=== PATIENT | male | born 1965 | race Caucasian/White ===

== ENCOUNTER → 2021-09-06 | Outpatient (CLI) | payer OTHER | END | disposition home or self-care (01) | LOC: LABWHC1 11:46 | PROVIDERS: ATTEND Internal Medicine | DX: Z11.59 Encounter for screening for other viral diseases (principal); Z20.822 Contact with and (suspected) exposure to COVID-19 | CPT/HCPCS: U0003; C9803 ==

== ENCOUNTER 2021-09-11 17:52 | Inpatient (IN) | payer OTHER ==
[2021-09-11] MEDS ORDERED: MORPHINE SULFATE 4 MG/ML SYRINGE IV STA (20:47)
[2021-09-11] MEDS ORDERED: ONDANSETRON 4 MG/2 ML VIAL IVP STA (20:47)
[2021-09-11] MEDS ORDERED: PANTOPRAZOLE 40 MG/10 ML VIAL IVP STA (20:47)
[2021-09-11] MEDS ORDERED: SODIUM CHLORIDE 0.9% 1,000 ML IV STA ×2 (20:47→23:58)
--- NOTE | 2021-09-11 20:51 | ED ---
Abdominal Pain HPI - General Chief Complaint: Abdominal Pain Stated Complaint: covid+,Abd pain-sent by Time Seen by Provider: 09/11/21 20:42 Source: patient Mode of arrival: ambulatory Limitations: no limitations - History of Present Illness Initial Comments: This 55-year-old male presents with a complaint of abdominal pain which is bilateral mid to upper region starting yesterday. He has had some nausea but no vomiting. He has had diarrhea but no constipation. He denies any fever at home but has a temperature of 100.1 here. He denies any urinary symptomatology. He does relate having covid-like symptoms for the past 7 days. He was diagnosed with Covid 3 days ago. He has had a cough but no shortness of breath. He denies any loss of taste or smell. He complains of significant fatigue. He states that he has not had much to eat for the last 3 days due to decreased appetite. He denies any other complaints or modifying factors. He states that he did have somewhat similar symptoms once in the past when he had his gallbladder out. - Related Data Home Medications Medication Instructions Recorded Confirmed Albuterol Inhaler [Ventolin Hfa 2 puff INHALATION RT-QID PRN 09/11/21 09/11/21 Inhaler] Cetirizine HCl [Zyrtec] 10 mg PO DAILY 09/11/21 09/11/21 Lisinopril [Prinivil] 10 mg PO DAILY 09/11/21 09/11/21 Zafirlukast [Accolate] 20 mg PO BID 09/11/21 09/11/21 guaiFENesin [Mucinex] 600 mg PO BID PRN 09/11/21 09/11/21 Allergies Allergy/AdvReac Type Severity Reaction Status Date / Time budesonide [From Symbicort] Allergy Rash/Hives, Verified 09/11/21 23:14 FEELS LIKE SKIN IS BURNING formoterol [From Symbicort] Allergy Rash/Hives, Verified 09/11/21 23:14 FEELS LIKE SKIN IS BURNING Review of Systems ROS Statement: Those systems with pertinent positive or pertinent negative responses have been documented in the HPI. ROS Other: All systems not noted in ROS Statement are negative. Past Medical History Past Medical History: Asthma, Diabetes Mellitus, Hypertension History of Any Multi-Drug Resistant Organisms: None Reported Past Surgical History: Cholecystectomy Past Psychological History: No Psychological Hx Reported Smoking Status: Never smoker Past Alcohol Use History: None Reported Past Drug Use History: None Reported General Exam - General Exam Comments Initial Comments: GENERAL: The patient is well nourished and well hydrated. VITAL SIGNS: Heart rate, blood pressure, respiratory rate reviewed as recorded in nurse's notes. EYES: Pupils are round and reactive. Extraocular movements are intact. No conjunctival / lid redness or swelling. ENT: No external evidence of injury, swelling, or ecchymosis. Airway is patent. Throat is clear. NECK: Nontender. No swelling or evidence of injury. No subcutaneous emphysema. Trachea is midline. No thyroid mass. HEART: Regular rate and rhythm. Good peripheral pulses. LUNGS/CHEST: Breath sounds clear and equal bilaterally. No rales, rhonchi, or wheezes. No ecchymosis, subcutaneous emphysema, or tenderness. ABDOMEN: Abdomen soft with mild tenderness present to the mid to upper bilateral abdomen. No palpable masses or organomegaly. No peritoneal signs. No abdominal wall swelling or ecchymosis. EXTREMITIES: No extremity tenderness. Normal muscle tone and function. No thoracolumbar tenderness. NEUROLOGIC: Sensation is grossly intact. Cranial nerve exam reveals face is symmetrical, tongue is midline, speech is clear. SKIN: No abrasions or ecchymosis is noted. No induration or masses noted. PSYCHIATRIC: Alert and oriented. Appropriate behavior and judgment. Limitations: no limitations Course Vital Signs 09/11/21 09/11/21 19:52 23:25 Temperature 100.1 F H 99.9 F H Pulse Rate 115 H 96 Respiratory 18 16 Rate Blood Pressure 145/85 133/81 O2 Sat by Pulse 92 L 91 L Oximetry Medical Decision Making - Medical Decision Making The patient was seen and examined. All diagnostics are reviewed. He does receive an IV with fluid hydration. He also receives morphine and Zofran intravenously. The chest x-ray does show bilateral pneumonia consistent with atypical viral pneumonia. The computed tomography scan of abdomen and pelvis shows evidence of an ileus but no other acute processes identified. The laboratory shows mild hypokalemia as well as elevated hemoglobin. There is no old hemoglobin for comparison. He also was given a GI cocktail. His initial pulse ox is between 91 and 92%. His EKG shows a sinus tachycardia at a rate of 10 101. There is no acute ST-T wave changes noted. The AR intervals 140, QRS duration is 92, and the QTc interval is 438. The patient is voicing some relief of his abdominal pain with the GI cocktail. It is felt as though he benefit from admission to the hospital for further treatment. He is requesting admissi on. Return parameters are discussed. Case will be discussed with internal medicine shortly. - Lab Data Result diagrams: 09/11/21 21:09/11/21 21: Lab Results 09/11/21 09/11/21 09/11/21 Range/Units : 21: 21: WBC 9.7 (3.8-10.6) k/uL RBC 6.08 H (4.30-5.90) m/uL Hgb 19.4 H* (13.0-17.5) gm/dL Hct 55.6 H (39.0-53.0) % MCV 91.5 (80.0-100.0) fL MCH 32.0 (25.0-35.0) pg MCHC 34.9 (31.0-37.0) g/dL RDW 13.2 (11.5-15.5) % Plt Count 195 (150-450) k/uL MPV 8.5 Neutrophils % 87 % Lymphocytes % 5 % Monocytes % 7 % Eosinophils % 0 % Basophils % 0 % Neutrophils # 8.4 H (1.3-7.7) k/uL Lymphocytes # 0.5 L (1.0-4.8) k/uL Monocytes # 0.6 (0-1.0) k/uL Eosinophils # 0.0 (0-0.7) k/uL Basophils # 0.0 (0-0.2) k/uL PT 11.2 (9.0-12.0) sec INR 1.1 (<1.2) APTT 25.1 (22.0-30.0) sec Sodium 136 L (137-145) mmol/L Potassium 3.4 L (3.5-5.1) mmol/L Chloride 97 L (98-107) mmol/L Carbon Dioxide 25 (22-30) mmol/L Anion Gap 14 mmol/L BUN 20 (9-20) mg/dL Creatinine 1.12 (0.66-1.25) mg/dL Est GFR (CKD-EPI)AfAm 84 (>60 ml/min/1.73 sqM) Est GFR (CKD-EPI)NonAf 73 (>60 ml/min/1.73 sqM) Glucose 121 H (74-99) mg/dL Calcium 8.4 (8.4-10.2) mg/dL Total Bilirubin 0.7 (0.2-1.3) mg/dL AST 48 (17-59) U/L ALT 33 (4-49) U/L Alkaline Phosphatase 76 (38-126) U/L Total Protein 7.3 (6.3-8.2) g/dL Albumin 3.8 (3.5-5.0) g/dL Lipase 174 (23-300) U/L Disposition Clinical Impression: COVID-19, Acute abdominal pain, Tachycardia, Hypoxia, Elevated hemoglobin, Hypokalemia, Hypochloremia, Decreased appetite, Weakness, Pneumonia due to COVID-19 virus, Fever Disposition: ADMITTED IP TO THIS [facility] Condition: Fair Is patient prescribed a controlled substance at d/c from ED?: No Referrals: Rhonda Lopez MD [Primary Care Provider] - 1-2 days Time of Disposition: 23:52 Decision Date: 09/11/21 Decision Time: 23:53
--- NOTE | 2021-09-11 21:09 | XR ---
EXAMINATION TYPE: XR chest 2V DATE OF EXAM: 09/11/2021 9:02 PM COMPARISON:None CLINICAL INDICATION:Male, 55 years old with history of cough; TECHNIQUE: Frontal and lateral views of the chest. FINDINGS: Lungs/Pleura: Subtle Multifocal airspace opacities. No evidence of pneumothorax or pleural effusion. Pulmonary vascularity: Unremarkable. Heart/mediastinum: Cardiomediastinal silhouette is unremarkable. Musculoskeletal: No acute osseous pathology. IMPRESSION: Multifocal pneumonia suggested.
[2021-09-11] MEDS: SODIUM CHLORIDE 0.9% 1,000 ML IV STA (21:20)
[2021-09-11 21:32] LABS: Basophils % (A) 0 %; Eosinophils % (A) 0 %; Lymphocytes # (A) 0.5 k/uL (1.0-4.8); Lymphocytes % (A) 5 %; MCHC 34.9 g/dL (31.0-37.0); MCV 91.5 fL (80.0-100.0); Mean Platelet Volume 8.5; Monocytes # (A) 0.6 k/uL (0-1.0); Monocytes % (A) 7 %; Neutrophils # (A) 8.4 k/uL (1.3-7.7); Neutrophils % (A) 87 %; Platelet Count 195 k/uL (150-450); RBC 6.08 m/uL (4.30-5.90); RDW 13.2 % (11.5-15.5); WBC 9.7 k/uL (3.8-10.6)
[2021-09-11 21:41] LABS: Albumin 3.8 g/dL (3.5-5.0); Calcium 8.4 mg/dL (8.4-10.2); Potassium 3.4 mmol/L (3.5-5.1); Total Bilirubin 0.7 mg/dL (0.2-1.3); Total Protein 7.3 g/dL (6.3-8.2)
[2021-09-11 21:44] LABS: HCT 55.6 % (39.0-53.0)
[2021-09-11 21:45] LABS: HGB 19.4 gm/dL (13.0-17.5)
[2021-09-11 21:56] LABS: INR 1.1 (<1.2); Partial Thromboplastin Time 25.1 sec (22.0-30.0); Prothrombin Time 11.2 sec (9.0-12.0)
[2021-09-11] MEDS ORDERED: MAG HYDROX/AL HYDROX/SIMETH 30 ML, HYOSCYAMINE ELIXIR 10 ML, LIDOCAINE VISCOUS 2% 10 ML PO STA ×3 (22:20)
[2021-09-11] MEDS ORDERED: DEXAMETHASONE SOD PHOSPHATE 10 MG/ML 1 ML VIAL IV STA (22:21)
--- NOTE | 2021-09-11 22:31 | CT ---
EXAMINATION TYPE: CT abdomen pelvis w con DATE OF EXAM: 09/11/2021 COMPARISON: October 31, 2011 HISTORY: abdominal pain CT DLP: 1394.9 mGycm Automated exposure control for dose reduction was used. CONTRAST: Performed with IV Contrast, patient injected with 100 mL of Isovue 300. Images obtained from the diaphragm to the floor the pelvis with IV contrast. There is some patchy linear density at the lung bases consistent with atelectasis. Heart size is norm al. There is no pericardial effusion. There is 3 cm cyst in the anterior liver. There is a 1.5 cm cyst lateral right lobe of the liver. Spl een is intact. There is no pancreatic mass. Stomach is intact. The bile ducts are not dilated. There are clips from cholecystectomy. There is no adrenal mass. Kidneys show satisfactory contrast opacification. There is no hydronephrosi s. There are left side renal parapelvic cysts. Ureters are not dilated. There is no retroperitoneal a denopathy. Bladder distends smoothly. There is no inguinal hernia. There is no free fluid in the pelv is. There is no mesenteric edema. There is no ascites or free air. There is no bowel obstruction. The lum bar vertebra have normal alignment. Posterior elements are intact. There is no compression fracture. Bony pelvis is intact. Hip joints appear normal. There is 2.5 cm fat-containing umbilical hernia. Del ayed images show normal renal excretion. Appendix is not seen. There is no sign of thickened appendix . There are some mildly dilated proximal small bowel loops up to 3.3 cm. No transition point seen. IMPRESSION: There is some mildly dilated proximal small bowel that could relate to ileus. No transition seen. I d o not suspect a mechanical bowel obstruction. Appendix not seen. This appears new compared to old exa m. Patchy atelectasis at the lung bases.
[2021-09-11] MEDS ORDERED: guaiFENesin 600 MG TABLET.ER PO PRN (23:53)
[2021-09-11] MEDS ORDERED: HYDROmorphone 0.5 MG/0.5 ML SYRINGE IVP PRN (23:54)
[2021-09-11] MEDS ORDERED: ONDANSETRON 4 MG/2 ML VIAL IVP PRN (23:54)
[2021-09-11] MEDS ORDERED: MORPHINE SULFATE 4 MG/ML SYRINGE IV PRN (23:54)
[2021-09-11] MEDS ORDERED: NALOXONE 0.4 MG/ML 1 ML VIAL IV PRN (23:54)
[2021-09-11] MEDS ORDERED: ACETAMINOPHEN TAB 325 MG TAB PO PRN (23:54)
[2021-09-11] MEDS ORDERED: POTASSIUM CHLORIDE ER 20 MEQ TAB.ER PO STA (23:58)
[2021-09-12 00:40] LABS: Mucus,Urine Rare /hpf; WBC,Urine 1 /hpf (0-5)
[2021-09-12 00:41] LABS: Appearance,Urine Clear (Clear); Bilirubin,Urine Negative (Negative); Blood,Urine Small (Negative); Color,Urine Yellow; Glucose,Urine (UA) Negative (Negative); Ketones,Urine 2+ (Negative); Leukocyte Esterase,Urine Negative (Negative); Nitrite,Urine Negative (Negative); Protein,Urine 1+ (Negative); RBC,Urine 6 /hpf (0-5); Squamous Epithelial Cell,Urine <1 /hpf (0-4); Urobilinogen,Urine <2.0 mg/dL (<2.0)
[2021-09-12 00:44] LABS: Specific Gravity,Urine >1.050 (1.001-1.035)
[2021-09-12] MEDS: ALBUTEROL HFA INHALER INHALATION SCH ×6 (03:59→21:31)
[2021-09-12 04:20] LABS: Basophils % (A) 0 %; Eosinophils % (A) 0 %; HCT 52.2 % (39.0-53.0); HGB 17.8 gm/dL (13.0-17.5); Lymphocytes # (A) 0.4 k/uL (1.0-4.8); Lymphocytes % (A) 6 %; MCH 31.5 pg (25.0-35.0); MCHC 34.1 g/dL (31.0-37.0); MCV 92.1 fL (80.0-100.0); Mean Platelet Volume 9.4; Monocytes # (A) 0.3 k/uL (0-1.0); Monocytes % (A) 4 %; Neutrophils # (A) 6.4 k/uL (1.3-7.7); Neutrophils % (A) 89 %; Platelet Count 184 k/uL (150-450); RBC 5.67 m/uL (4.30-5.90); RDW 13.4 % (11.5-15.5); WBC 7.2 k/uL (3.8-10.6)
[2021-09-12 05:05] LABS: African American GFR (CKD) >90 (>60 ml/min/1.73 sqM); Anion Gap 9 mmol/L; Blood Urea Nitrogen 17 mg/dL (9-20); Calcium 7.6 mg/dL (8.4-10.2); Carbon Dioxide 24 mmol/L (22-30); Chloride 103 mmol/L (98-107); Glucose 128 mg/dL (74-99); Non-African American GFR(CKD) >90 (>60 ml/min/1.73 sqM); Potassium 4.1 mmol/L (3.5-5.1); Sodium 136 mmol/L (137-145)
[2021-09-12] MEDS ORDERED: DEXAMETHASONE SOD PHOSPHATE 10 MG/ML 1 ML VIAL IV SCH (09:00)
[2021-09-12] MEDS: ENOXAPARIN 40 MG/0.4 ML SYRINGE SQ SCH (10:45)
[2021-09-12] MEDS: lisinopriL 10 MG TAB PO SCH (10:46)
[2021-09-12] MEDS: PANTOPRAZOLE 40 MG/10 ML VIAL IV SCH (10:46)
[2021-09-12] MEDS: LORATADINE 10 MG TAB PO SCH (10:46)
--- NOTE | 2021-09-12 11:41 | P.CONS ---
History of Present Illness - Reason for Consult Consult date: 09/12/21 erythrocytosis Requesting physician: Payam Maddox - Chief Complaint abd pain, D, covid - History of Present Illness Mr. Coker is a very pleasant 55-year-old male we have been asked to see in regards to erythrocytosis. He is currently admitted with Covid pneumonia. Patient states that for about 10 days he's been experiencing diarrhea, this progressed to abdominal pain over the last several days which is what led him to seek medical attention. Patient denies any history of blood disorders, he has never been told he has had a high hemoglobin before, patient does note snoring, has never had a sleep study, he is exposed to secondhand smoke. His CT of the abdomen and pelvis was negative for any acute process, no bowel obstruction. He has been hydrated with a slight decrease in his hemoglobin. Review of Systems 10 point review of systems is negative except as stated in HPI Past Medical History Past Medical History: Asthma, Diabetes Mellitus, Hypertension History of Any Multi-Drug Resistant Organisms: None Reported Past Surgical History: Cholecystectomy Past Psychological History: No Psychological Hx Reported Smoking Status: Never smoker Past Alcohol Use History: None Reported Past Drug Use History: None Reported Medications and Allergies Home Medications Medication Instructions Recorded Confirmed Type Albuterol Inhaler [Ventolin Hfa 2 puff INHALATION RT-QID PRN 09/11/21 09/11/21 History Inhaler] Cetirizine HCl [Zyrtec] 10 mg PO DAILY 09/11/21 09/11/21 History Lisinopril [Prinivil] 10 mg PO DAILY 09/11/21 09/11/21 History Zafirlukast [Accolate] 20 mg PO BID 09/11/21 09/11/21 History guaiFENesin [Mucinex] 600 mg PO BID PRN 09/11/21 09/11/21 History Allergies Allergy/AdvReac Type Severity Reaction Status Date / Time budesonide [From Symbicort] Allergy Rash/Hives, Verified 09/11/21 23:14 FEELS LIKE SKIN IS BURNING formoterol [From Symbicort] Allergy Rash/Hives, Verified 09/11/21 23:14 FEELS LIKE SKIN IS BURNING Physical Exam Vitals: Vital Signs Temp Pulse Resp BP Pulse Ox 09/12/21 10:51 18 157/77 09/12/21 08:40 98.4 F 87 16 139/78 94 L 09/12/21 06:24 98.6 F 80 18 137/79 95 09/12/21 04:50 97.5 F L 75 18 94 L 09/12/21 04:23 83 16 127/83 91 L 09/12/21 02:23 89 16 133/82 91 L 09/11/21 23:25 99.9 F H 96 16 133/81 91 L 09/11/21 19:52 100.1 F H 115 H 18 145/85 92 L Intake and Output 09/11/21 09/12/21 09/12/21 22:59 06:59 14:59 Other: Weight 104.326 kg - Constitutional General appearance: cooperative, no acute distress, obese - EENT Eyes: anicteric sclerae, EOMI ENT: hearing grossly normal, normal oropharynx - Neck Neck: no lymphadenopathy - Respiratory Respiratory: bilateral: diminished - Cardiovascular Rhythm: regular Heart sounds: normal: S1, S2 Abnormal Heart Sounds: no systolic murmur, no diastolic murmur, no rub, no S3 Gallop, no S4 Gallop, no click, no other leg Peripheral Edema: bilateral: None - Gastrointestinal General gastrointestinal: no absent bowel sounds, no decreased bowel sounds, no distended, no hepatomegaly, no hyperactive bowel sounds, normal bowel sounds, no organomegaly, no rigid, no scaphoid, soft, no splenomegaly, no tenderness, no umbilical hernia, no ventral hernia - Integumentary Integumentary: normal - Neurologic Neurologic: CNII-XII intact - Musculoskeletal Musculoskeletal: strength equal bilaterally - Psychiatric Psychiatric: A&O x's 3, appropriate affect, intact judgment & insight Results CBC & Chem 7: 09/12/21 03:45 09/12/21 03:45 Labs: Abnormal Lab Results - Last 24 Hours (Table) 09/11/21 09/11/21 09/12/21 Range/Units 21:22 21:22 00:20 RBC 6.08 H (4.30-5.90) m/uL Hgb 19.4 H* (13.0-17.5) gm/dL Hct 55.6 H (39.0-53.0) % Neutrophils # 8.4 H (1.3-7.7) k/uL Lymphocytes # 0.5 L (1.0-4.8) k/uL Sodium 136 L (137-145) mmol/L Potassium 3.4 L (3.5-5.1) mmol/L Chloride 97 L (98-107) mmol/L Glucose 121 H (74-99) mg/dL Calcium (8.4-10.2) mg/dL Ur Specific [place] >1.050 H (1.001-1.035) Urine Protein 1+ H (Negative) Urine Ketones 2+ H (Negative) Urine Blood Small H (Negative) Urine RBC 6 H (0-5) /hpf Urine Mucus Rare H (None) /hpf 09/12/21 09/12/21 Range/Units 03:45 03:45 RBC (4.30-5.90) m/uL Hgb 17.8 H (13.0-17.5) gm/dL Hct (39.0-53.0) % Neutrophils # (1.3-7.7) k/uL Lymphocytes # 0.4 L (1.0-4.8) k/uL Sodium 136 L (137-145) mmol/L Potassium (3.5-5.1) mmol/L Chloride (98-107) mmol/L Glucose 128 H (74-99) mg/dL Calcium 7.6 L (8.4-10.2) mg/dL Ur Specific [place] (1.001-1.035) Urine Protein (Negative) Urine Ketones (Negative) Urine Blood (Negative) Urine RBC (0-5) /hpf Urine Mucus (None) /hpf Chest x-ray: report reviewed CT scan - abdomen: report reviewed CT scan - pelvis: report reviewed Assessment and Plan (1) Elevated hemoglobin Narrative/Plan: New onset, no history of elevated hemoglobin. Patient had been experiencing diarrhea for about 10 days prior to admit which may have made him slightly hemoconcentrated on admission. There has been a slight decrease in the hemoglobin since patient started on IV fluids. With reports of snoring and secondhand smoke exposure a secondary polycythemia is possible. We'll order a reticulocyte count and erythropoietin levels. She new to monitor CBC while inpatient. Current Visit: Yes Status: Acute Priority: Medium Code(s): D58.2 - OTHER HEMOGLOBINOPATHIES SNOMED Code(s): 726434244 Plan: Doctor attests: I performed a history and physical examination of this patient, developed impression and plan of care. Discussed with dictator. I agree with dictators note, documented as a scribe.
[2021-09-12 12:21] LABS: Reticulocyte % 0.5 % (0.5-2.0)
[2021-09-12] MEDS: SODIUM CHLORIDE 0.9% 1,000 ML IV STA (12:40)
[2021-09-12 14:44] VITALS: BMI 37.1
--- NOTE | 2021-09-12 17:41 | HP ---
HISTORY AND PHYSICAL CHIEF COMPLAINT: Multiple complaints including abdominal pain as well as cough, fever and Covid 19. HISTORY OF PRESENT ILLNESS: This 55-year-old gentleman with a past medical history of asthma, diabetes, GERD, hypertension, DJD, history of pneumonia, being followed by Dr. Rhonda Lopez in the outpatient setting complaining of symptoms of cough and abdominal discomfort for the last one week. The patient diagnosed with Covid 19 three days ago. Because of increased symptoms, patient came to [facility] and was admitted for further evaluation and treatment. The CT scan of the abdomen showed only dilated proximal small bowel could be ileus. Hemoglobin was also elevated. There is no history of fever, rigors, chills at this time. D-dimer is not available. The pulse ox has been rather well maintained on room air, even though it is in low 90s. The patient was febrile on admission and tachycardic. There is no headache, loss of consciousness, seizures at this time. PAST MEDICAL HISTORY: History of asthma, diabetes type 2, GERD, hypertension, DJD, history of pneumonia, renal disease. MEDICATION: Home medications are reviewed and include Mucinex, Zyrtec, Ventolin, Prinivil, doses reviewed. ALLERGIES: Symbicort. FAMILY HISTORY: History of colon cancer. SOCIAL HISTORY: No history of smoking. No history of alcohol intake. REVIEW OF SYSTEMS: ENT: No diminished vision. No diminished hearing. CARDIOVASCULAR as mentioned earlier. RESPIRATORY: As mentioned earlier. GI: No nausea or vomiting. : No dysuria. NERVOUS SYSTEM: No numbness or weakness. ALLERGY/IMMUNOLOGY: No history of anemia. HEMATOLOGY/ONCOLOGY: No history of anemia. ENDOCRINE: As mentioned earlier. CONSTITUTIONAL: As mentioned earlier. DERMATOLOGY negative. RHEUMATOLOGY: Negative. PSYCHIATRIC: As mentioned earlier. PHYSICAL EXAMINATION: Patient is alert, oriented x3. Pulse is 75, blood pressure is 127/83, respiration 18, temperature 97.5, pulse ox 94% on room air. HEENT: Conjunctivae normal. Oral mucosa moist. NECK is no jugular venous distention. No thyroid enlargement, carotid bruit. CARDIOVASCULAR system: S1, S2 muffled. RESPIRATION: A few scattered rhonchi. ABDOMEN: Soft, obese, nontender. No mass palpable. LEGS: No edema. No swelling. NERVOUS SYSTEM: Higher functions as mentioned earlier. Moves all 4 limbs. No focal motor or sensory deficits. LYMPHATICS: No lymph nodes palpable in the neck, axillae or groin. SKIN: No ulcer. No rash and no bleeding. JOINTS: No active deforming arthropathy. LABS: WBC 7.3, hemoglobin 17.8, sodium 136, calcium is 7.6. ASSESSMENT: 1. Acute Covid 19 infection with acute COVID-19 early bilateral interstitial pneumonia with no hypoxia. 2. Secondary to polycythemia. 3. Abdominal pain and discomfort, possibly small-bowel ileus secondary to Covid 19. 4. Hyponatremia. 5. Hypokalemia. 6. Increased random glucose. 7. Hypocalcemia, mild. 8. History of asthma. 9. Diabetes mellitus, type 2. 10.Gastroesophageal reflux disease. 11.Hypertension. 12.History of degenerative joint disease. 13.History pneumonia. 14.History of renal disease. 15.History of hypoglycemia. 16.History of diverticular disease. 17.History of nephrolithiasis. 18.History of cholecystectomy. 19.History of motion sickness. 20.FULL CODE. 21.Obesity. 22.FULL CODE. RECOMMENDATIONS AND DISCUSSION: This 55-year-old gentleman who presented with multiple complex medical issues, at this time, we will monitor the patient closely, continue the current medications, management and symptomatic treatment. Otherwise, at this time, I would recommend a D-dimer and if it is positive, CT angio of the chest. Continue the usual medications for Covid 19. Infectious disease evaluation. As mentioned earlier pulse ox is mentioned at this time. Continue the Lovenox and prognosis guarded because of multiple complex medical issues. The patient is apparently unvaccinated. Further recommendations to follow. A copy of this dictation is being forwarded to Dr. Lopez who is the primary physician. We will monitor the blood sugar also. MMODL / IJN: [id number] / [facility]ITALMandy
[2021-09-12 18:43] LABS: Glucose,Whole Blood 134 mg/dL (75-99)
[2021-09-12] MEDS: INSULIN ASPART (NovoLOG) 100 UNIT/ML VIAL SQ SCH ×2 (18:47→22:00)
[2021-09-12] MEDS ORDERED: REMDESIVIR 200 MG in SODIUM CHLORIDE 0.9% 250 ML IVPB ONE (21:42)
[2021-09-12 21:44] LABS: Glucose,Whole Blood 133 mg/dL (75-99)
[2021-09-12] MEDS: MONTELUKAST 10 MG TAB PO SCH (22:01)
[2021-09-13 05:34] LABS: Basophils % (A) 0 %; Eosinophils % (A) 0 %; HCT 51.7 % (39.0-53.0); HGB 17.4 gm/dL (13.0-17.5); Lymphocytes # (A) 0.5 k/uL (1.0-4.8); Lymphocytes % (A) 3 %; MCH 31.1 pg (25.0-35.0); MCHC 33.7 g/dL (31.0-37.0); MCV 92.5 fL (80.0-100.0); Mean Platelet Volume 9.6; Monocytes # (A) 0.4 k/uL (0-1.0); Monocytes % (A) 3 %; Neutrophils # (A) 12.2 k/uL (1.3-7.7); Neutrophils % (A) 92 %; Platelet Count 212 k/uL (150-450); RBC 5.59 m/uL (4.30-5.90); RDW 13.4 % (11.5-15.5); WBC 13.2 k/uL (3.8-10.6)
[2021-09-13 05:45] LABS: African American GFR (CKD) >90 (>60 ml/min/1.73 sqM); Anion Gap 7 mmol/L; Blood Urea Nitrogen 18 mg/dL (9-20); Calcium 7.8 mg/dL (8.4-10.2); Carbon Dioxide 24 mmol/L (22-30); Chloride 107 mmol/L (98-107); Glucose 111 mg/dL (74-99); Non-African American GFR(CKD) >90 (>60 ml/min/1.73 sqM); Sodium 138 mmol/L (137-145)
[2021-09-13 06:02] LABS: Potassium 3.9 mmol/L (3.5-5.1)
[2021-09-13 07:27] LABS: Glucose,Whole Blood 102 mg/dL (75-99)
[2021-09-13] MEDS: INSULIN ASPART (NovoLOG) 100 UNIT/ML VIAL SQ SCH ×4 (07:33→22:53)
[2021-09-13] MEDS: LORATADINE 10 MG TAB PO SCH (08:16)
[2021-09-13] MEDS: DEXAMETHASONE SOD PHOSPHATE 10 MG/ML 1 ML VIAL IV SCH (08:16)
[2021-09-13] MEDS: PANTOPRAZOLE 40 MG/10 ML VIAL IV SCH (08:16)
[2021-09-13] MEDS: lisinopriL 10 MG TAB PO SCH (08:16)
[2021-09-13] MEDS: ENOXAPARIN 40 MG/0.4 ML SYRINGE SQ SCH (08:17)
[2021-09-13] MEDS: REMDESIVIR 100 MG in SODIUM CHLORIDE 0.9% 250 ML IVPB SCH (08:30)
--- NOTE | 2021-09-13 09:08 | P.CONS ---
History of Present Illness - Reason for Consult Consult date: 09/12/21 covid 19 pneumonia Requesting physician: Myles Ramesh - Chief Complaint abd pain x 1 day - History of Present Illness History of present illness : Patient is 55-year-old male presenting to the ER last night for evaluation of abdominal pain which has been mid to the upper region started yesterday the patient has some nausea but no vomiting did have diarrhea we also have a low-grade fever the patient did have a initially some URI symptoms and did have a cough which is mild in intensity and dry nature no pleuritic chest pain no shortness of breath symptom has been going on for about a week patient did have decreased appetite and no vomiting was diagnosed with a Covid 3 days before presentation to the hospital on arrival to the ER the patient did have a fever 100.1 F patient did have evidence of hypoxemia with O2 sats of 91% on room air patient did have a normal white count with a lymphopenia hemoglobin was elevated at 19.4 D-dimer was 0.99 kidney function was normal and enzymes are normal urine is negative patient did have a chest x-ray multifocal pneumonia suggested patient also have a CT of abdominal pelvis mildly dilated proximal small bowel could relate to the ileus infectious was consulted because of his Covid pneumonia Review of system: CONSTITUTIONAL: Positive for weakness along with the fever. EYES: No complaint. ENT: No complaint. RESPIRATORY: As per history of present illness CARDIOVASCULAR: No complaint. GENITOURINARY: No complaint. GASTROINTESTINAL: As per history of present illness. MUSCULOSKELETAL: No complaint. INTEGUMENTARY: No complaint. PSYCHOLOGIC: No complaint. ENDOCRINE: No complaint. NEUROLOGIC: No complaint. Past medical history : Reviewed, documented below Past surgical history : Reviewed, documented below Social history: Reviewed, documented below Medications: Reviewed, as documented below EXAMINATION: Vital sigans= Reviewed and documented below GENERAL DESCRIPTION: Middle-aged male lying in bed, no distress. No tachypnea or accessory muscle of respiration use. HEENT: Shows Pallor , no scleral icterus. Oral mucous membrane is dry. NECK: Trachea central, no thyromegaly. LUNGS: Unlabored breathing. Decrease intensity of breath sounds. No wheeze or crackle. HEART: S1, S2, regular rate and rhythm. ABDOMEN: Soft, no tenderness , guarding or rigidity EXTREMITIES: No edema of feet. SKIN: No rash, no masses palpable. NEUROLOGICAL: The patient is awake, alert, oriented x3, mood and affect normal. LABS AND RADIOLOGY: Reviewed results see below Assessment : Patient presented to hospital with abdominal pain CT abdominal pelvis IV suggestive of ileus in this patient also have a low-grade fever did have a hypoxemia with evidence of multifocal pneumonia on the chest x-ray symptom onset has been 7 days patient currently within the therapeutic window for remdesivir per [facility] policy no evidence of any secondary bacterial pneumonia Plan: 1-patient was started on remdesivir 5-day protocol 2-dexamethasone Lovenox zinc and ascorbic acid 3-droplet isolation and respiratory support We will follow on clinical condition and cultures to further adjust medication if needed Thank you for this consultation we will follow the patient along with you Past Medical History Past Medical History: Asthma, Diabetes Mellitus, GERD/Reflux, Hypertension, Os teoarthritis (OA), Pneumonia, Renal Disease Additional Past Medical History / Comment(s): Hypoglycemia, numbness/tingling bilateral hand fingers, diverticular disease, nephrolithiasis/passed stone on his own, arthritis in spine/occasional back pain. History of Any Multi-Drug Resistant Organisms: None Reported Past Surgical History: Cholecystectomy Additional Past Surgical History / Comment(s): Colonoscopy Past Anesthesia/Blood Transfusion Reactions: Motion Sickness Smoking Status: Never smoker - Past Family History Father Family Medical History: Cancer Additional Family Medical History / Comment(s): Colon cancer. Father is living. Mother Family Medical History: Cancer, Thyroid Disorder Additional Family Medical History / Comment(s): Skin cancer, mother is alive. Medications and Allergies Home Medications Medication Instructions Recorded Confirmed Type Albuterol Inhaler [Ventolin Hfa 2 puff INHALATION RT-QID PRN 09/11/21 09/11/21 History Inhaler] Cetirizine HCl [Zyrtec] 10 mg PO DAILY 09/11/21 09/11/21 History Lisinopril [Prinivil] 10 mg PO DAILY 09/11/21 09/11/21 History Zafirlukast [Accolate] 20 mg PO BID 09/11/21 09/11/21 History guaiFENesin [Mucinex] 600 mg PO BID PRN 09/11/21 09/11/21 History Allergies Allergy/AdvReac Type Severity Reaction Status Date / Time budesonide [From Symbicort] Allergy Rash/Hives, Verified 09/11/21 23:14 FEELS LIKE SKIN IS BURNING formoterol [From Symbicort] Allergy Rash/Hives, Verified 09/11/21 23:14 FEELS LIKE SKIN IS BURNING Physical Exam Vitals: Vital Signs Temp Pulse Pulse Resp BP BP Pulse Ox 09/12/21 15:26 80 16 117/56 94 L 09/12/21 14:00 77 16 154/80 94 L 09/12/21 10:51 18 157/77 09/12/21 08:40 98.4 F 87 16 139/78 94 L 09/12/21 06:24 98.6 F 80 18 137/79 95 09/12/21 04:50 97.5 F L 75 18 94 L 09/12/21 04:23 83 16 127/83 91 L 09/12/21 02:23 89 16 133/82 91 L 09/11/21 23:25 99.9 F H 96 16 133/81 91 L Intake and Output 09/12/21 09/12/21 09/12/21 06:59 14:59 22:59 Other: Weight 104.326 kg Results CBC & Chem 7: 09/13/21 04:57 09/13/21 04:57 Labs: Abnormal Lab Results - Last 24 Hours (Table) 09/12/21 09/12/21 09/12/21 Range/Units 00:20 03:45 03:45 Hgb 17.8 H (13.0-17.5) gm/dL Lymphocytes # 0.4 L (1.0-4.8) k/uL D-Dimer (<0.60) mg/L FEU Sodium 136 L (137-145) mmol/L Glucose 128 H (74-99) mg/dL POC Glucose (mg/dL) (75-99) mg/dL Calcium 7.6 L (8.4-10.2) mg/dL Ur Specific Ophiem >1.050 H (1.001-1.035) Urine Protein 1+ H (Negative) Urine Ketones 2+ H (Negative) Urine Blood Small H (Negative) Urine RBC 6 H (0-5) /hpf Urine Mucus Rare H (None) /hpf 09/12/21 09/12/21 09/12/21 Range/Units 17:08 18:40 21:43 Hgb (13.0-17.5) gm/dL Lymphocytes # (1.0-4.8) k/uL D-Dimer 0.99 H (<0.60) mg/L FEU Sodium (137-145) mmol/L Glucose (74-99) mg/dL POC Glucose (mg/dL) 134 H 133 H (75-99) mg/dL Calcium (8.4-10.2) mg/dL Ur Specific Ophiem (1.001-1.035) Urine Protein (Negative) Urine Ketones (Negative) Urine Blood (Negative) Urine RBC (0-5) /hpf Urine Mucus (None) /hpf
[2021-09-13] MEDS: ALBUTEROL HFA INHALER INHALATION SCH ×4 (09:36→23:42)
[2021-09-13 12:48] LABS: Glucose,Whole Blood 118 mg/dL (75-99)
--- NOTE | 2021-09-13 13:08 | P.PN ---
Subjective Progress Note Date: 09/13/21 Principal diagnosis: erythrocytosis In f/u pt is SOB at rest, cough persists. Objective - Vital Signs Vital signs: Vital Signs Temp 99.8 F H 09/13/21 07:15 Pulse 107 H 09/13/21 10:17 Resp 16 09/13/21 10:17 BP 169/93 09/13/21 10:17 Pulse Ox 95 09/13/21 10:17 Intake & Output 09/12/21 09/13/21 09/13/21 18:59 06:59 18:59 Intake Total 250 Balance 250 Weight 104.326 kg Intake: Intake, IV Titration 250 Amount Remdesivir 200 mg In 250 Sodium Chloride 0.9% 250 ml @ 250 mls/hr IVPB ONCE ONE Rx#:[id number] Other: Voiding Method Toilet Toilet # Voids 3 - Constitutional General appearance: Present: cooperative, mild distress, obese - EENT Eyes: Present: anicteric sclerae, EOMI ENT: Present: hearing grossly normal - Musculoskeletal Musculoskeletal: Present: strength equal bilaterally - Psychiatric Psychiatric: Present: A&O x's 3, appropriate affect, intact judgment & insight - Labs CBC & Chem 7: 09/13/21 04:57 09/13/21 04:57 Labs: Abnormal Lab Results - Last 24 Hours (Table) 09/12/21 09/12/21 09/12/21 Range/Units 17:08 17:08 18:40 WBC (3.8-10.6) k/uL Neutrophils # (1.3-7.7) k/uL Lymphocytes # (1.0-4.8) k/uL D-Dimer 0.99 H (<0.60) mg/L FEU Glucose (74-99) mg/dL POC Glucose (mg/dL) 134 H (75-99) mg/dL Calcium (8.4-10.2) mg/dL Ferritin 966.0 H (22.0-322.0) ng/mL 09/12/21 09/13/21 09/13/21 Range/Units 21:43 04:57 04:57 WBC 13.2 H (3.8-10.6) k/uL Neutrophils # 12.2 H (1.3-7.7) k/uL Lymphocytes # 0.5 L (1.0-4.8) k/uL D-Dimer (<0.60) mg/L FEU Glucose 111 H (74-99) mg/dL POC Glucose (mg/dL) 133 H (75-99) mg/dL Calcium 7.8 L (8.4-10.2) mg/dL Ferritin (22.0-322.0) ng/mL 09/13/21 09/13/21 Range/Units 07:26 12:36 WBC (3.8-10.6) k/uL Neutrophils # (1.3-7.7) k/uL Lymphocytes # (1.0-4.8) k/uL D-Dimer (<0.60) mg/L FEU Glucose (74-99) mg/dL POC Glucose (mg/dL) 102 H 118 H (75-99) mg/dL Calcium (8.4-10.2) mg/dL Ferritin (22.0-322.0) ng/mL Assessment and Plan (1) Elevated hemoglobin Narrative/Plan: New onset, no history of elevated hemoglobin. Patient had been experiencing diarrhea for about 10 days prior to admit which may have made him slightly hemoconcentrated on admission. There has been a slight decrease in the hemoglobin since patient started on IV fluids. With reports of snoring and s econdhand smoke exposure a secondary polycythemia is possible. Reticulocyte is low normal, pending erythropoietin level. CBC shows Hgb stable and WNL today Current Visit: Yes Status: Acute Priority: Medium Code(s): D58.2 - OTHER HEMOGLOBINOPATHIES SNOMED Code(s): 038409094
[2021-09-13 17:20] LABS: Glucose,Whole Blood 104 mg/dL (75-99)
--- NOTE | 2021-09-13 18:09 | PN ---
PROGRESS NOTE DATE OF SERVICE: 09/13/2021 This 55-year-old gentleman who was admitted with acute Covid 19 infection with early interstitial pneumonia is being closely monitored at this time. Multiple consultants following the patient closely. The patient is started on Remdesivir. No chest pain. No palpitations. No fever. PHYSICAL EXAMINATION: Alert and oriented times three. Pulse is 87. Blood pressure 130/76, respirations 16, temperature 99.4, pulse ox 94% on room air. HEENT: Conjunctivae normal. NECK: No JVD. CARDIOVASCULAR: S1, S2. RESPIRATION: Breath sounds diminished in the bases. A few scattered rhonchi and crackles. ABDOMEN: Soft. NERVOUS SYSTEM: No focal deficits. LAB STUDIES: WBC 13.2, hemoglobin 17.4. ASSESSMENT: 1. Acute Covid 19 infection with acute Covid 19 early interstitial bilateral interstitial pneumonia with no hypoxia. 2. Secondary polycythemia. 3. On Remdesivir. 4. Abdominal pain and discomfort, possibly small-bowel ileus secondary to Covid 19. 5. Hyponatremia. 6. Hypokalemia. 7. Increased random glucose. 8. Hypocalcemia mild. 9. History of asthma. 10.Diabetes type 2. 11.Gastroesophageal reflux disease. 12.Hypertension. 13.History of degenerative joint disease. 14.History of pneumonia. 15.History of renal disease. 16.History of hypoglycemia. 17.History of diverticular disease. 18.History of nephrolithiasis. 19.History of cholecystectomy. 20.History of motion sickness. 21.FULL CODE. 22.Obesity. RECOMMENDATIONS AND DISCUSSION: Recommend to continue current management and symptomatic treatment. Otherwise, continue the bronchodilators. Continue with Remdesivir. Continue the rest of medications. Closely follow with multiple consultants. Further recommendations to follow. A copy of this dictation being forwarded to Dr. Lopez who is the primary care physician. MMODL / IJN: [id number] /
[2021-09-13] MEDS: MONTELUKAST 10 MG TAB PO SCH (20:31)
[2021-09-13 21:26] LABS: Glucose,Whole Blood 124 mg/dL (75-99)
--- NOTE | 2021-09-13 23:12 | PN ---
PROGRESS NOTE DATE OF SERVICE: 09/13/2021 REASON FOR FOLLOWUP: COVID-19 pneumonia. INTERVAL HISTORY: The patient is afebrile. The patient is breathing slightly comfortably, currently not requiring supplemental oxygen. The patient denies having any chest pain or worsening cough or sputum production. No nausea, vomiting. No abdominal pain or diarrhea. PHYSICAL EXAMINATION: Blood pressure 130/76, pulse of 87, temperature of 99.4. He is 94% on room air. General description is a middle-aged male lying in bed in no distress. Respiratory system: Unlabored breathing. Diminished breath sounds at the base. No wheeze. Heart S1, S2. Regular rate and rhythm. Abdomen soft, no tenderness. Extremities no edema of the feet. LABS: Hemoglobin 17.4, white count 13.2, creatinine 0.8. DIAGNOSTIC IMPRESSION AND PLAN: Patient with acute COVID-19 pneumonia in this patient who seems to be clinically responding to the remdesivir and dexamethasone, Lovenox, zinc and ascorbic acid; to continue along with respiratory support, and monitor his clinical course closely. MMODL / IJN: [id number] /
[2021-09-14 07:31] LABS: Glucose,Whole Blood 89 mg/dL (75-99)
[2021-09-14] MEDS: ALBUTEROL HFA INHALER INHALATION SCH ×4 (07:35→20:20)
[2021-09-14] MEDS: INSULIN ASPART (NovoLOG) 100 UNIT/ML VIAL SQ SCH ×4 (07:53→21:01)
[2021-09-14] MEDS: LORATADINE 10 MG TAB PO SCH (10:06)
[2021-09-14] MEDS: PANTOPRAZOLE 40 MG TABLET PO SCH (10:06)
[2021-09-14] MEDS: lisinopriL 10 MG TAB PO SCH (10:06)
[2021-09-14] MEDS: DEXAMETHASONE SOD PHOSPHATE 10 MG/ML 1 ML VIAL IV SCH (10:07)
[2021-09-14] MEDS: ENOXAPARIN 40 MG/0.4 ML SYRINGE SQ SCH (10:07)
[2021-09-14] MEDS: REMDESIVIR 100 MG in SODIUM CHLORIDE 0.9% 250 ML IVPB SCH (10:07)
--- NOTE | 2021-09-14 12:10 | XR ---
EXAMINATION TYPE: XR chest 1V portable DATE OF EXAM: 09/14/2021 CLINICAL HISTORY: Cough. COVID TECHNIQUE: Single AP portable upright view of the chest is obtained. COMPARISON: Chest x-ray from 3 days earlier FINDINGS: Diminished inspiration with persistent bilateral multifocal opacities mid to lower lungs g reatest in the periphery bilaterally. Cardiac silhouette size stable and within normal limits. New ov erlying EKG leads. Osseous structures are intact. IMPRESSION: Persistent bilateral multifocal increased opacities consistent with covid-19 infection, n o significant change when accounting for diminished inspiration.
[2021-09-14 12:21] LABS: Glucose,Whole Blood 118 mg/dL (75-99)
[2021-09-14 17:49] LABS: Glucose,Whole Blood 135 mg/dL (75-99)
[2021-09-14 20:18] LABS: Glucose,Whole Blood 144 mg/dL (75-99)
[2021-09-14] MEDS: MONTELUKAST 10 MG TAB PO SCH (21:01)
--- NOTE | 2021-09-14 21:01 | PN ---
PROGRESS NOTE DATE OF SERVICE: 09/14/2021 This 55-year-old gentleman admitted with acute COVID-19 pneumonia as well as acute COVID-19 bilateral pneumonia as well as acute hypoxic respiratory failure is started on Remdesivir also. No chest pain. No palpitations. No fever. PHYSICAL EXAMINATION: Alert and oriented x3. Pulse 86, blood pressure 148/31, respiration 18, temperature 99.8, pulse ox 93% on room air. HEENT: Conjunctivae normal. Oral mucosa moist. NECK: No jugular venous distention. No lymph node enlargement. CARDIOVASCULAR: S1, S2, muffled. No S3, no S4, RESPIRATORY: Diminished breath sounds at the bases. A few scattered rhonchi. ABDOMEN: Soft, nontender. LEGS: No edema, no swelling. NERVOUS SYSTEM: No focal deficits. LABS: Accu-Cheks 135. D-dimer is 0.99. Most recent chest x-ray which I reviewed personally showed some bilateral pneumonia. ASSESSMENT: 1. Acute COVID-19 infection with acute COVID-19 earlier bilateral interstitial pneumonia with no hypoxia, on Remdesivir. 2. Secondary polycythemia. 3. Abdominal pain and discomfort, possibly small-bowel ileus secondary to COVID-19. 4. Hyponatremia. 5. Hypokalemia. 6. Increased random glucose. 7. Hypocalcemia, mild. 8. History of asthma. 9. Diabetes type 2. 10.Gastroesophageal reflux disease. 11.Hypertension. 12.History of degenerative joint disease. 13.History of pneumonia. 14.History of renal disease. 15.History of hypoglycemia. 16.History of diverticular disease. 17.History of nephrolithiasis. 18.History of cholecystectomy. 19.History of motion sickness. 20.FULL CODE. 21.Obesity. RECOMMENDATIONS AND DISCUSSION: Recommend to continue current medications, continue symptomatic treatment. Otherwise, at this time I recommend continue with Remdesivir, continue the rest of medications. Closely follow with Infectious Disease. Further recommendations to follow. MMODL / IJN: [id number] /
--- NOTE | 2021-09-15 02:07 | PN ---
PROGRESS NOTE DATE OF SERVICE: 09/14/2021 REASON FOR FOLLOWUP: COVID-19 pneumonia. INTERVAL HISTORY: The patient has been running a low-grade fever of 99.8. The patient denies having any chest pain. The patient did have cough, slight decreased intensity. No nausea, vomiting. No abdominal pain, no diarrhea. PHYSICAL EXAMINATION: Blood pressure 140/81 with pulse of 83, temperature 99.8. He is 93% on room air. General description is a middle-aged male up in the bed in no distress. Respiratory system: Unlabored breathing, ( ), no wheeze. Heart S1, S2. Regular rate and rhythm. Abdomen soft, no tenderness. LABS: Chest x-ray with no significant change. DIAGNOSTIC IMPRESSION AND PLAN: Patient with acute COVID-19 pneumonia in this patient did have minimal clinical improvement. Patient to continue with Remdesivir, dexamethasone, Lovenox and ascorbic acid along with respiratory support and monitor clinical course closely. MMODL / IJN: [id number] /
[2021-09-15] MEDS: ALBUTEROL HFA INHALER INHALATION SCH ×4 (07:28→20:39)
[2021-09-15 07:58] LABS: Glucose,Whole Blood 103 mg/dL (75-99)
[2021-09-15] MEDS: INSULIN ASPART (NovoLOG) 100 UNIT/ML VIAL SQ SCH ×4 (08:14→20:29)
[2021-09-15] MEDS: PANTOPRAZOLE 40 MG TABLET PO SCH (08:33)
[2021-09-15] MEDS: ENOXAPARIN 40 MG/0.4 ML SYRINGE SQ SCH (08:33)
[2021-09-15] MEDS: LORATADINE 10 MG TAB PO SCH (08:33)
[2021-09-15] MEDS: REMDESIVIR 100 MG in SODIUM CHLORIDE 0.9% 250 ML IVPB SCH (08:33)
[2021-09-15] MEDS: lisinopriL 10 MG TAB PO SCH (08:33)
[2021-09-15] MEDS: DEXAMETHASONE SOD PHOSPHATE 10 MG/ML 1 ML VIAL IV SCH (08:33)
[2021-09-15 11:38] LABS: Glucose,Whole Blood 143 mg/dL (75-99)
[2021-09-15 11:43] LABS: Basophils % (A) 0 %; Eosinophils % (A) 0 %; HCT 52.1 % (39.0-53.0); HGB 17.6 gm/dL (13.0-17.5); Lymphocytes # (A) 0.4 k/uL (1.0-4.8); Lymphocytes % (A) 3 %; MCH 31.2 pg (25.0-35.0); MCHC 33.9 g/dL (31.0-37.0); MCV 92.1 fL (80.0-100.0); Mean Platelet Volume 11.4; Monocytes % (A) 7 %; Neutrophils # (A) 12.5 k/uL (1.3-7.7); Neutrophils % (A) 89 %; RBC 5.66 m/uL (4.30-5.90); RDW 13.4 % (11.5-15.5); WBC 14.1 k/uL (3.8-10.6)
[2021-09-15 12:05] LABS: Platelet Count 211 k/uL (150-450)
[2021-09-15 12:42] LABS: Chloride 107 mmol/L (98-107)
[2021-09-15 12:45] LABS: African American GFR (CKD) >90 (>60 ml/min/1.73 sqM); Anion Gap 11 mmol/L; Blood Urea Nitrogen 20 mg/dL (9-20); Calcium 8.4 mg/dL (8.4-10.2); Carbon Dioxide 24 mmol/L (22-30); Glucose 143 mg/dL (74-99); Non-African American GFR(CKD) >90 (>60 ml/min/1.73 sqM); Potassium 3.8 mmol/L (3.5-5.1); Sodium 142 mmol/L (137-145)
[2021-09-15 17:36] LABS: Glucose,Whole Blood 126 mg/dL (75-99)
[2021-09-15 19:42] LABS: Glucose,Whole Blood 147 mg/dL (75-99)
[2021-09-15] MEDS: MONTELUKAST 10 MG TAB PO SCH (20:29)
--- NOTE | 2021-09-16 00:06 | P.PN ---
Subjective Progress Note Date: 09/15/21 This is a 55-year-old male who was recently admitted with Covid 19 bilateral pneumonia and is being closely monitored. ID following and patient continues on Remdesivir along with vitamin C and zinc supplements and will continue. Patient is also on lovenox and dexamethasone and will continue. Patient is using intermittent oxygen and will wean as tolerated. Possible home 02 will be needed and patient does drop down under 88% on room air with exertion. Encouraged continued oral intake and activity as tolerated. Patient denies any chest pain at this time. Labs: WBC is 14.1, hgb is 17.6, platelets 211, sodium is 142, potassium is 3.8, cr is 0.8, calcium is 8.4 Review of systems: Constitutional: reports of fatigue, no reports of fever, or chills Cardiovascular: No reports of chest pain or palpitations Respiratory: No reports of shortness of breath or cough GI: No reports of nausea, vomiting, or diarrhea, reports abdominal pain although less intense : No reports of dysuria or retention Neurovascular: No reports of weakness or numbness, reports generalized pain All medications have been reviewed Active Medications Acetaminophen (Acetaminophen Tab 325 Mg Tab) 650 mg PO Q6HR PRN PRN Reason: Mild Pain or Fever > 100.5 Albuterol Sulfate (Albuterol Hfa Inhaler) 2 puff INHALATION RT-QID [facility] Last Admin: 09/15/21 07:28 Dose: 2 puff Documented by: Dexamethasone Sodium Phosphate (Dexamethasone Sod Phosphate 10 Mg/Ml 1 Ml Vial) 6 mg IV DAILY [facility] Last Admin: 09/15/21 08:33 Dose: 6 mg Documented by: Enoxaparin Sodium (Enoxaparin 40 Mg/0.4 Ml Syringe) 40 mg SQ DAILY [facility] Last Admin: 09/15/21 08:33 Dose: 40 mg Documented by: Guaifenesin (Guaifenesin 600 Mg Tablet.Er) 600 mg PO BID PRN PRN Reason: Congestion Hydromorphone HCl (Hydromorphone 0.5 Mg/0.5 Ml Syringe) 0.5 mg IVP Q3HR PRN PRN Reason: Moderate Pain Remdesivir 100 mg/ Sodium (Chloride) 250 mls @ 250 mls/hr IVPB DAILY [facility] Stop: 09/16/21 09:59 Last Admin: 09/15/21 08:33 Dose: 250 mls/hr Documented by: Insulin Aspart (Insulin Aspart (Novolog) 100 Unit/Ml Vial) 0 unit SQ ACHS [facility]; Protocol Last Admin: 09/15/21 08:14 Dose: Not Given Documented by: Lisinopril (Lisinopril 10 Mg Tab) 10 mg PO DAILY [facility] Last Admin: 09/15/21 08:33 Dose: 10 mg Documented by: Loratadine (Loratadine 10 Mg Tab) 10 mg PO DAILY [facility] Last Admin: 09/15/21 08:33 Dose: 10 mg Documented by: Montelukast Sodium (Montelukast 10 Mg Tab) 10 mg PO HS [facility] Last Admin: 09/14/21 21:01 Dose: 10 mg Documented by: Morphine Sulfate (Morphine Sulfate 4 Mg/Ml Syringe) 4 mg IV Q4HR PRN PRN Reason: Severe Pain Naloxone HCl (Naloxone 0.4 Mg/Ml 1 Ml Vial) 0.2 mg IV Q2M PRN PRN Reason: Opioid Reversal Ondansetron HCl (Ondansetron 4 Mg/2 Ml Vial) 4 mg IVP Q4H PRN PRN Reason: Nausea And Vomiting Last Admin: 09/13/21 08:16 Dose: 4 mg Documented by: Pantoprazole Sodium (Pantoprazole 40 Mg Tablet) 40 mg PO AC-BRKFST [facility] Last Admin: 09/15/21 08:33 Dose: 40 mg Documented by: Physical exam: Gen: This is a 55-year-old male awake, alert and oriented 3, well-developed, well-nourished Temp is 98.7F, pulse is 75, respirations are 16, blood pressure is 137/79, oxygen saturation is 90% on 2L via NC. HEENT: Head is atraumatic, normocephalic. Pupils equal, round. Sclerae is anicteric. NECK: Supple. No JVD. No lymphadenopathy. No thyromegaly. LUNGS: Diminished breath sounds bilaterally with some scattered rhonchi and no wheezing noted.. No intercostal retractions. HEART: S1, S2 are muffled. ABDOMEN: Soft. Bowel sounds are present. No masses. No tenderness. EXTREMITIES: No pedal edema. No calf tenderness. NEUROLOGICAL: Patient is awake, alert and oriented x3. Cranial nerves 2 through 12 are grossly intact. Assessment: Acute COVID-19 infection with acute COVID-19 interstitial bilateral pneumonia, on Remdesivir Secondary polycythemia Abdominal pain and discomfort, possible small bowel ileus secondary to COVID-19 Hyponatremia Hypokalemia Increased random glucose hypocalcemia, mild history of asthma diabetes mellitus type 2 GERD Hypertension history of DJD history of pneumonia history of renal disease history of hypoglycemia history of diverticular disease History of nephrolithiasis history of cholecystectomy History of motion sickness Full code Obesity with a BMI of 37.1 Plan: recommend to continue current medications and management. Patient being follow ed by infectious disease and continues on Remdesivir day 4 of 5. Patient also continues on IV dexamethasone, lovenox, vitamin and zinc supplements and will continue. Patient denies any worsening shortness of breath and is intermittently using 2 L of O2. Case management provided prescription to obtain oxygen on discharge. Labs within normal limits. Due to multiple complex medical issues, prognosis is guarded. Will discuss with ID about discharge planning with possible discharge in 24-48 hours. Objective - Vital Signs Vital signs: Vital Signs Temp 99.4 F 09/15/21 01:24 Pulse 67 09/15/21 01:24 Resp 18 09/15/21 01:24 BP 130/72 09/15/21 01:24 Pulse Ox 94 L 09/15/21 01:24 Intake & Output 09/14/21 09/15/21 09/15/21 18:59 06:59 18:59 Intake Total 480 Balance 480 Intake: Oral 480 Other: Voiding Method Toilet Toilet # Voids 2 1 # Bowel Movements 1 - Labs CBC & Chem 7: 09/15/21 10:43 09/15/21 12:11 Labs: Abnormal Lab Results - Last 24 Hours (Table) 09/14/21 09/14/21 09/14/21 Range/Units 12:20 17:47 20:16 POC Glucose (mg/dL) 118 H 135 H 144 H (75-99) mg/dL 09/15/21 Range/Units 07:57 POC Glucose (mg/dL) 103 H (75-99) mg/dL
--- NOTE | 2021-09-16 00:08 | PN ---
PROGRESS NOTE DATE OF SERVICE: 09/15/2021 REASON FOR FOLLOWUP: COVID-19 pneumonia. INTERVAL HISTORY: Patient is afebrile. The patient is breathing slightly comfortably. Denies having any chest pain. No worsening cough or sputum production. No abdominal pain. No diarrhea. PHYSICAL EXAMINATION: Blood pressure 133/78, pulse of 79, temperature is 98.5. He is 94% on 2 L nasal cannula. General description is a middle-aged male up in the bed in no distress. Respiratory system: Unlabored breathing, decreased intensity in breath sounds. No wheeze. Heart S1, S2. Regular rate and rhythm. Abdomen soft, no tenderness. LABS: Creatinine 0.90. DIAGNOSTIC IMPRESSION AND PLAN: Patient with acute COVID-19 pneumonia, slow clinical improvement. Patient is covered with Remdesivir, dexamethasone, Lovenox, zinc and ascorbic acid along with respiratory support and incentive spirometer and slowly weaning off his oxygen. MMODL / IJN: [id number] /
[2021-09-16 02:06] VITALS: RESP 16
[2021-09-16] MEDS: ALBUTEROL HFA INHALER INHALATION SCH ×3 (07:30→15:39)
[2021-09-16 08:00] LABS: Glucose,Whole Blood 89 mg/dL (75-99)
[2021-09-16 08:15] VITALS: BP 134/80; PULSE 73; TEMP 98.9
[2021-09-16] MEDS: PANTOPRAZOLE 40 MG TABLET PO SCH (08:34)
[2021-09-16] MEDS: LORATADINE 10 MG TAB PO SCH (08:34)
[2021-09-16] MEDS: ENOXAPARIN 40 MG/0.4 ML SYRINGE SQ SCH (08:34)
[2021-09-16] MEDS: lisinopriL 10 MG TAB PO SCH (08:34)
[2021-09-16] MEDS: REMDESIVIR 100 MG in SODIUM CHLORIDE 0.9% 250 ML IVPB SCH (08:35)
[2021-09-16] MEDS: INSULIN ASPART (NovoLOG) 100 UNIT/ML VIAL SQ SCH (08:35)
[2021-09-16] MEDS: DEXAMETHASONE SOD PHOSPHATE 10 MG/ML 1 ML VIAL IV SCH (08:35)
[2021-09-16 11:57] LABS: Glucose,Whole Blood 116 mg/dL (75-99)
--- NOTE | 2021-09-16 17:24 | PN ---
PROGRESS NOTE DATE OF SERVICE: 09/16/2021 REASON FOR FOLLOWUP: COVID-19 pneumonia. INTERVAL HISTORY: The patient is afebrile. The patient is currently breathing comfortably on room air. The patient denies having any chest pain. Minimal cough. No sputum. No abdominal pain or diarrhea. Overall feeling better. PHYSICAL EXAMINATION: Blood pressure /80 with a pulse of 73, temperature 98.9. He is 92% on room air. General description is a middle-aged male up in the bed in no distress. Respiratory system: Unlabored breathing. Decreased intensity of breath sounds. No wheeze. Heart S1, S2. Regular rate and rhythm. Abdomen soft, no tenderness. LABS: No new labs have been obtained today. DIAGNOSTIC IMPRESSION AND PLAN: Patient with acute COVID-19 pneumonia in this patient who has shown overall clinical improvement, has received 5-day course of remdesivir. May consider a short course of dexamethasone, zinc and ascorbic acid on discharge and close outpatient followup. Multiple questions; those were answered in layman's terms. MMODL / IJN: [id number] /
== END 2021-09-16 16:00 | disposition home or self-care (01) | DRG 177 ==
LOC: EC 17:52 → 4SSUR 23:54 → 3NCARDOBS 09-12 11:01 → 6NMEDSUR 09-13 09:57
PROVIDERS: ADMIT Hospitalist; ATTEND Hospitalist
PROC: 3E0333Z Introduction of Anti-inflammatory into Peripheral Vein, Percutaneous Approach (ICD-10-PCS; 2021-09-11)
PROC: XW033E5 Introduction of Remdesivir Anti-infective into Peripheral Vein, Percutaneous Approach, New Technology Group 5 (ICD-10-PCS; principal; 2021-09-12)
DX: U07.1 COVID-19 (principal); J12.82 Pneumonia due to coronavirus disease 2019; J96.01 Acute respiratory failure with hypoxia; K56.7 Ileus, unspecified; E87.1 Hypo-osmolality and hyponatremia; R10.9 Unspecified abdominal pain; E86.0 Dehydration; D75.1 Secondary polycythemia; E11.9 Type 2 diabetes mellitus without complications; E66.9 Obesity, unspecified; Z68.37 Body mass index [BMI] 37.0-37.9, adult; E83.51 Hypocalcemia; E87.6 Hypokalemia; E87.8 Other disorders of electrolyte and fluid balance, not elsewhere classified; I10 Essential (primary) hypertension; J45.909 Unspecified asthma, uncomplicated; K21.9 Gastro-esophageal reflux disease without esophagitis; M19.90 Unspecified osteoarthritis, unspecified site; Z79.01 Long term (current) use of anticoagulants; Z79.899 Other long term (current) drug therapy; Z80.0 Family history of malignant neoplasm of digestive organs; Z80.8 Family history of malignant neoplasm of other organs or systems; Z87.442 Personal history of urinary calculi; Z90.49 Acquired absence of other specified parts of digestive tract; Z87.01 Personal history of pneumonia (recurrent)
CPT/HCPCS: 36415; 71045; 71046; 74177; 80048; 80053; 81001; 82668; 82728; 83690; 85025; 85045; 85379; 85610; 85730; 93005; 94640; 96361; 96372; 96374; 96375; 96376; 99285

== ENCOUNTER → 2024-02-04 | Outpatient (CLI) | payer BC ==
[2024-02-04 19:23] LABS: T4, Free (Free Thyroxine) 0.94 ng/dL (0.80-1.80)
== END | disposition home or self-care (01) ==
LOC: LABWHC1 16:14
PROVIDERS: ATTEND Internal Medicine Interventional Cardiology
DX: R63.5 Abnormal weight gain (principal)
CPT/HCPCS: 36415; 84439; 84443

== ENCOUNTER → 2024-11-30 | Outpatient (CLI) | payer BC ==
--- NOTE | 2024-11-30 13:53 | CT ---
EXAMINATION TYPE: CT abdomen pelvis w con CT DLP: 1985.6 mGycm, Automated exposure control for dose reduction was used. DATE OF EXAM: 11/30/2024 12:55 PM COMPARISON: CT abdomen pelvis 09/11/2021 CLINICAL INDICATION:Male, 59 years old with history of R10.9 unspecified abdominal pain; abdominal pa in TECHNIQUE: Standard CT of the abdomen and pelvis following the administration of 100 cc of Isovue 3 00 IV contrast material and oral contrast. Coronal and sagittal reformats were performed. FINDINGS: LOWER CHEST: No significant findings. ABDOMEN LIVER: Anterior left hepatic lobe 2.1 cm cyst. Additional anterior right inferior hepatic lobe subcen timeter hypodensity likely representing a cyst. GALLBLADDER AND BILE DUCTS: The gallbladder is surgically absent. No biliary duct dilatation. PANCREAS: Unremarkable. SPLEEN: Unremarkable. ADRENAL GLANDS: Unremarkable. KIDNEYS AND URETERS: No evidence of hydronephrosis or renal calculus. The kidneys enhance symmetrical ly. Stable left inferior renal pole exophytic 2.0 cm cyst. Left renal sinus is redemonstrated. No ure teral calculus. Contrast is demonstrated within both collecting systems and proximal ureters on the d elayed phase. PELVIS BLADDER: Unremarkable REPRODUCTIVE: Prostate is enlarged in size measuring 5.2 cm in transverse dimension. ABDOMEN & PELVIS STOMACH AND BOWEL: Stomach and duodenum are unremarkable. Enteric contrast reaches the distal transve rse colon. No focal bowel wall thickening or surrounding inflammatory changes. The appendix is within normal limits. No evidence of bowel obstruction. PERITONEUM: No evidence of pneumoperitoneum or free fluid. VASCULATURE: No evidence of aortic aneurysm. Stable left pelvic phlebolith. MUSCULOSKELETAL: No acute osseous abnormalities LYMPH NODES: No evidence for lymphadenopathy. SOFT TISSUE/ABDOMINAL WALL: Small fat filled umbilical hernia. IMPRESSION: 1. No CT evidence for acute abdominal/pelvic process. 2. Prostatomegaly. [facility], , 11/30/2024 1:51 PM
== END | disposition home or self-care (01) ==
LOC: RADCTMAIN 10:43
PROVIDERS: ATTEND Internal Medicine
DX: N40.0 Benign prostatic hyperplasia without lower urinary tract symptoms (principal); K42.9 Umbilical hernia without obstruction or gangrene
CPT/HCPCS: 74177; Q9967